=== PATIENT | male | born 1975 | race Caucasian/White ===

== ENCOUNTER 2017-05-02 02:47 | Inpatient (IN) | payer MEDICAID ==
[~2017-05-02] VITALS: Ht 172.7 cm; Wt 82.0 kg
[2017-05-02] VITALS (7 sets, daily range): BP systolic 124–152; BP diastolic 60–95; PULSE 48–106; RESP 16–17; TEMP 97.9–98.9; O2SAT 95–98
[2017-05-02] MEDS ORDERED: PRIL20TA2 (02:54)
[2017-05-02] MEDS ORDERED: cefTAZidime INJ 2,000 MG in SODIUM CHLORIDE 0.9% INJ 100 ML IV ONE (03:00)
[2017-05-02] MEDS ORDERED: VANCOMYCIN INJ 1,500 MG in SODIUM CHLORID 0.9% 500 ML INJ 500 ML IV ONE (03:00)
[2017-05-02] MEDS ORDERED: TETANUS/DIPHTHERIA TOXOID ADULT 0.5 ML VIAL IM ONE (03:00)
[2017-05-02] MEDS ORDERED: MORPHINE SULFATE 4 MG/ML INJ IV PUSH ONE ×2 (03:00→05:45)
[2017-05-02 03:16] LABS: AUTOMATED NEUTROPHIL # 2.2 TH/MM3 (1.8-7.7); BASOPHIL % 0.9 % (0.0-2.0); EOSINOPHIL # 0.1 TH/MM3 (0-0.4); EOSINOPHIL % 2.6 % (0.0-4.0); HEMATOCRIT 40.4 % (39.0-51.0); HEMO FLAGS DIFF FINAL; LYMPH % 34.4 % (9.0-44.0); LYMPHOCYTE # 1.5 TH/MM3 (1.0-4.8); MEAN CELL VOLUME 89.6 FL (80.0-100.0); MEAN CORPUSCULAR HEMOGLOBIN 31.7 PG (27.0-34.0); MEAN CORPUSCULAR HGB CONC 35.4 % (32.0-36.0); MONO % 9.4 % (0.0-8.0); NEUT % 52.7 % (16.0-70.0); PLATELET COUNT 246 TH/MM3 (150-450); RED CELL DISTRIBUTION WIDTH 13.6 % (11.6-17.2); WHITE BLOOD COUNT 4.3 TH/MM3 (4.0-11.0)
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
[2017-05-02 03:30] LABS: ALKALINE PHOSPHATASE 53 U/L (45-117); TOTAL BILIRUBIN ADULT 0.3 MG/DL (0.2-1.0)
[2017-05-02 03:31] LABS: ALT (GPT) 33 U/L (12-78); ANION GAP 9 MEQ/L (5-15); AST (GOT) 25 U/L (15-37); BICARBONATE 23.9 MEQ/L (21.0-32.0); BLOOD UREA NITROGEN 13 MG/DL (7-18); CHLORIDE 107 MEQ/L (98-107); GLOMERULAR FILTRATION RATE 80 ML/MIN (>89); SODIUM (NA) 140 MEQ/L (136-145)
[2017-05-02 03:32] LABS: POTASSIUM 3.9 MEQ/L (3.5-5.1)
[2017-05-02] MEDS ORDERED: HYDROmorphone HCL PF 1 MG/ML VIAL IVS ONE (04:15)
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
[2017-05-02] MEDS ORDERED: ONDANSETRON HCL 4 MG/2 ML VIAL IV ONE (05:45)
[2017-05-02] MEDS ORDERED: SENNOSIDES 8.6 MG TAB PO PRN (06:30)
[2017-05-02] MEDS ORDERED: Vancomycin Consult Pharmacy 1 EA OTHER SCH (06:30)
[2017-05-02] MEDS ORDERED: SODIUM CHLORIDE 0.9% FLUSH 10 ML FLUSH IV FLUSH PRN (06:30)
[2017-05-02] MEDS ORDERED: ACETAMINOPHEN 325 MG TAB PO PRN (06:30)
[2017-05-02] MEDS ORDERED: LACTULOSE SYRUP 20 GM/30 ML CUP PO PRN (06:30)
[2017-05-02] MEDS ORDERED: MAGNESIUM HYDROXIDE SUSP 30 ML CUP PO PRN (06:30)
[2017-05-02] MEDS ORDERED: BISACODYL 10 MG SUPP RECTAL PRN (06:30)
[2017-05-02] MEDS ORDERED: ACETAMINOPHEN/HYDROcodone 325 MG/5 MG TAB PO PRN (06:30)
[2017-05-02] MEDS: SODIUM CHLORIDE 0.9% FLUSH 10 ML FLUSH IV FLUSH SCH ×2 (07:21→22:57)
[2017-05-02] MEDS: SODIUM CHLOR 0.9% 1000 ML INJ 1,000 ML IV SCH ×3 (07:21→22:57)
[2017-05-02] MEDS: DOCUSATE SODIUM 50 MG/SENNA 8.6 MG TAB PO SCH ×2 (07:22→21:00)
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
[2017-05-02] MEDS: MORPHINE SULFATE 4 MG/ML INJ IV PUSH PRN ×3 (09:48→16:49)
[2017-05-02] MEDS: PANTOPRAZOLE SOD 20 MG DELAYED RELEASE TAB PO SCH (09:48)
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
[2017-05-02] MEDS ORDERED: SODIUM HYALURONATE I-OCULAR ONE (12:00)
[2017-05-02] MEDS ORDERED: GLYCOPYRROLATE 1 MG/5 ML SYRINGE IV PUSH ONE (12:00)
[2017-05-02] MEDS: cefTAZidime INJ 1,000 MG in SODIUM CHLORIDE 0.9% INJ 100 ML IV SCH ×2 (13:07→23:08)
[2017-05-02] MEDS ORDERED: BALANCED SALT SOLN OPHT IRRIG 15 ML BTL ONE (17:34)
[2017-05-02] MEDS: VANCOMYCIN INJ 1,250 MG in SODIUM CHLOR 0.9% 250 ML INJ 250 ML IV SCH (17:56)
[2017-05-02] MEDS ORDERED: DEXAMETHASONE SOD PHOS 4 MG/ML VIAL ONE (19:10)
[2017-05-02] MEDS ORDERED: TOBRAMYCIN/DEXAMETHASONE OPTH OINT 3.5 GM TUBE ONE (19:10)
[2017-05-02] MEDS ORDERED: TOBRAMYCIN 0.3%/DEXAMETHASONE 0.1% OPHT SUSP 5 ML BTL ONE (19:10)
--- NOTE | 2017-05-02 22:49 | PD.OP ---
Operative Report Date of Surgery: May 02, 2017 Preoperative Diagnosis: ruptured globe with uveal prolapse left eye, left cheek laceration, left lower eyelid full thickness margin laceration, left mormonism laceration Postoperative Diagnosis: ruptured globe with uveal prolapse left eye, left cheek laceration, left lower eyelid full thickness margin laceration, left mormonism laceration Procedure: left ruptured globe repair, left mormonism laceration repair, left lower eyelid margin laceration repair, left cheek laceration repair Anesthesia: General Surgeon: Louann Huynh Telecommunication Systems Designer(s): none Operation and Findings: The patient was consented and taken back to the OR. He was put under general anesthesia and prepped and draped in the usual sterile fashion for ophthalmic surgery. A wire lid speculum was placed in the left eye. A 360 degree conjunctival peritomy was performed. There was a full thickness corneoscleral laceration extending from the superior sclera at 2 o'clock (extending 4 mm posterior to the limbus), through the cornea, to the inferior sclera at 4 o' clock (extending 6 mm posterior to the limbus). Cautery was used to achieve hemostasis. The wound was irrigated with 1 cc of TobraDex. 8-0 nylon sutures were used to close the sclera. 10-0 interrupted nylon sutures were used to close the cornea. OcuCoat was injected into the eye to inflate the eye. The wound was found to be watertight. 7-0 Vicryl was used to close the conjunctiva. 0.5cc of dexamethasone was injected subconjunctival. The left lower eyelid margin laceration was closed with a combination of 6-0 silk suture at the rea line, 6-0 Vicryl subdermal, 6-0 Prolene on the skin. The left cheek laceration was closed with a running 5-0 Prolene suture. The left mormonism laceration was closed with interrupted 5-0 Prolene. Steri-strips were placed over the lacerations. TobraDex ointment was placed on the left eye. A patch and shield were placed over the left eye. The patient was sent to PACU in stable condition. Louann Huynh MD May 02, 2017 22:49
--- NOTE | 2017-05-02 22:53 | HHI.PR ---
Subjective Remarks s/p left ruptured globe repair. Pt in PACU in stable condition. Objective Vital Signs Date Time Temp Pulse Resp B/P (MAP) Pulse Ox O2 Delivery O2 Flow Rate FiO2 05/02/17 17:03 17 05/02/17 15:20 98.5 58 17 144/81 (102) 97 05/02/17 11:31 98.0 59 17 152/95 (114) 97 05/02/17 08:41 97.9 54 17 124/65 (84) 98 05/02/17 08:20 05/02/17 07:00 48 16 124/68 (86) 96 Room Air 05/02/17 05:22 18 05/02/17 04:30 48 16 139/72 (94) 95 Room Air 05/02/17 04:00 18 05/02/17 02:54 98.3 81 16 142/86 (104) 97 I/O 05/01/17 05/01/17 05/01/17 05/02/17 05/02/17 05/02/17 06:59 14:59 22:59 06:59 14:59 22:59 Intake Total 615 ml Balance 615 ml Intake IV Total 615 ml Result Diagram: 05/02/17 0259 05/02/17 0259 Objective Remarks shield over left eye Assessment and Plan Problem List: (1) 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 Keep eye shield on overnight. I will see patient at 8 am. Ok to discharge after that. Pain meds, IV antibiotics per primary team. (2) Laceration of eyelid, left, full thickness ICD Codes: S01.112A - Laceration without foreign body of left eyelid and periocular area, initial encounter Plan: s/p repair. (3) Laceration of left cheek ICD Codes: S01.412A - Laceration without foreign body of left cheek and temporomandibular area, initial encounter Plan: s/p repair. Louann Huynh MD May 02, 2017 22:53
[2017-05-02] MEDS ORDERED: ZOLPIDEM TARTRATE 10 MG TAB PO PRN (23:00)
[2017-05-02] MEDS ORDERED: DO NOT ADM ANY ANTICOAGULANT DRUGS PRN (23:00)
[2017-05-03] MEDS: MORPHINE SULFATE 4 MG/ML INJ IV PUSH PRN ×2 (02:17→06:18)
[2017-05-03 03:38] VITALS: BP 132/60; PULSE 99; RESP 17; TEMP 98; O2SAT 98
[2017-05-03] MEDS: VANCOMYCIN INJ 1,250 MG in SODIUM CHLOR 0.9% 250 ML INJ 250 ML IV SCH (04:55)
[2017-05-03] MEDS: cefTAZidime INJ 1,000 MG in SODIUM CHLORIDE 0.9% INJ 100 ML IV SCH (06:19)
[2017-05-03 07:43] VITALS: BP 130/69; PULSE 63; RESP 19; TEMP 98.2; O2SAT 98
[2017-05-03] MEDS ORDERED: ACETAMINOPHEN/HYDROcodone 325 MG/10 MG TAB PO PRN (08:15)
--- NOTE | 2017-05-03 08:36 | HHI.PR ---
Subjective Remarks 1 day s/p left ruptured globe repair. Pt says pain is well controlled. Objective Vital Signs Date Time Temp Pulse Resp B/P (MAP) Pulse Ox O2 Delivery O2 Flow Rate FiO2 05/03/17 07:43 98.2 63 19 130/69 (89) 98 05/03/17 07:31 16 05/03/17 03:38 98.0 99 17 132/60 (84) 98 05/02/17 23:37 98.9 106 17 135/60 (85) 97 05/02/17 23:15 111 16 122/55 (77) 97 Nasal Cannula 2 05/02/17 23:15 99.7 111 16 122/55 (77) 97 Nasal Cannula 2 05/02/17 23:05 106 16 132/63 (86) 94 Nasal Cannula 2 05/02/17 22:45 99.9 121 16 137/79 (98) 96 Nasal Cannula 2 05/02/17 15:20 98.5 58 17 144/81 (102) 97 05/02/17 11:31 98.0 59 17 152/95 (114) 97 05/02/17 08:41 97.9 54 17 124/65 (84) 98 I/O 05/02/17 05/02/17 05/02/17 05/03/17 05/03/17 05/03/17 07:00 15:00 23:00 07:00 15:00 23:00 Intake Total 615 ml 1400 ml Output Total 0 ml Balance 615 ml 1400 ml Intake IV Total 615 ml 400 ml Other 1000 ml Output Estimated Blood Loss 0 ml Result Diagram: 05/02/17 0259 05/02/17 0259 Objective Remarks Va OS HM EOM full OU CVF unable OS Pupils unable OS Anterior exam OS sutures intact on conjunctiva and cornea, manoj neg, AC deep with hyphema Assessment and Plan Problem List: (1) 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 Ok to discharge today. Augmentin 875 BID x 10 days. Vigamox 1 drop QID OS. Prednisolone acetate 1% QID OS. Percocet 5/325 q4h prn pain. Follow up in clinic tomorrow at 9am. [address] [facility]. . (2) Laceration of eyelid, left, full thickness ICD Codes: S01.112A - Laceration without foreign body of left eyelid and periocular area, initial encounter Plan: s/p repair. Will remove sutures in 1 week. (3) Laceration of left cheek ICD Codes: S01.412A - Laceration without foreign body of left cheek and temporomandibular area, initial encounter Plan: s/p repair. Will remove sutures in 1 week. Louann Huynh MD May 03, 2017 08:36
[2017-05-03] MEDS: SODIUM CHLORIDE 0.9% FLUSH 10 ML FLUSH IV FLUSH SCH (09:06)
[2017-05-03] MEDS: DOCUSATE SODIUM 50 MG/SENNA 8.6 MG TAB PO SCH (09:06)
[2017-05-03] MEDS: PANTOPRAZOLE SOD 20 MG DELAYED RELEASE TAB PO SCH (09:06)
[2017-05-03] MEDS ORDERED: PERC5TAB12 PO (09:38)
[2017-05-03] MEDS ORDERED: PRED1SUS LEFT EYE (09:40)
[2017-05-03] MEDS ORDERED: AUGM875T3 PO (09:40)
[2017-05-03] MEDS ORDERED: VIGA0.5D LEFT EYE (09:40)
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
[2017-05-03 10:08] VITALS: RESP 17
[2017-05-03] MEDS ORDERED: PHARMACY ORDERED LAB ONE (16:45)
[2017-05-11] MEDS ORDERED: NEOM0.1S4 LEFT EYE (14:57)
== END 2017-05-03 11:49 | disposition home or self-care (01) | DRG 117 ==
LOC: NEPE 02:47 → NEDA 06:24 → NEPGCP 08:23
PROVIDERS: ADMIT Hospitalist; ATTEND Hospitalist
PROC: 08Q Eye, Repair (ICD-10-PCS; 2017-05-02)
PROC: 08Q7XZZ Repair Left Sclera, External Approach (ICD-10-PCS; 2017-05-02)
PROC: 0HQ1XZZ Repair Face Skin, External Approach (ICD-10-PCS; 2017-05-02)
PROC: 08Q9XZZ Repair Left Cornea, External Approach (ICD-10-PCS; principal; 2017-05-02 18:40)
DX: S05.22XA Ocular laceration and rupture with prolapse or loss of intraocular tissue, left eye, initial encounter (principal); S01.112A Laceration without foreign body of left eyelid and periocular area, initial encounter; S01.412A Laceration without foreign body of left cheek and temporomandibular area, initial encounter; S01.21XA Laceration without foreign body of nose, initial encounter; Y92.29 Other specified public building as the place of occurrence of the external cause; Y00.XXXA Assault by blunt object, initial encounter; Z72.0 Tobacco use; Z88.0 Allergy status to penicillin
CPT/HCPCS: 70480; 80053; 85025; 90471; 90714; 96365; 96367; 96375; 96376; J0713; J1100; J1170; J2270; J2405; J3010; J3370; J7030; J7040; J7050